=== PATIENT | female | born 1965 | race Caucasian/White ===

== ENCOUNTER 2016-12-09 13:00 | Outpatient (CLI) | payer MEDICAID | END 2016-12-09 13:01 | disposition home or self-care (01) | DX: G47.33 Obstructive sleep apnea (adult) (pediatric) (principal) ==

== ENCOUNTER 2017-06-03 14:23 | Outpatient (CLI) | payer MEDICAID | END 2017-06-03 14:24 | disposition home or self-care (01) | LOC: SC 14:23 | PROVIDERS: ATTEND Nurse Practitioner Family | DX: G47.33 Obstructive sleep apnea (adult) (pediatric) (principal) | CPT/HCPCS: 99212; 99214 ==

== ENCOUNTER 2018-06-30 08:00 | Outpatient (CLI) | payer MEDICAID | END 2018-06-30 23:59 | LOC: LAB.R 08:00 | PROVIDERS: ATTEND Nurse Practitioner | DX: I10 Essential (primary) hypertension (principal); Z12.11 Encounter for screening for malignant neoplasm of colon; E55.9 Vitamin D deficiency, unspecified; R53.83 Other fatigue; Z87.890 Personal history of sex reassignment; F64.8 Other gender identity disorders | CPT/HCPCS: 82274 ==

== ENCOUNTER → 2018-06-30 | Outpatient (CLI) | payer MEDICAID ==
[2018-06-30 18:48] LABS: BASOPHILS # (AUTO) 0.1 10^3/uL (0.0-0.1); BASOPHILS % (AUTO) 0.8 %; EOSINOPHILS # (AUTO) 0.3 10^3/uL (0.0-0.7); EOSINOPHILS % (AUTO) 4.1 %; HGB - HEMOGLOBIN 14.5 g/dL (12.0-16.0); LYMPHOCYTES # (AUTO) 2.2 10^3/uL (1.5-3.5); LYMPHOCYTES % (AUTO) 32.6 %; MEAN CORPUSCULAR HEMOGLOBIN 32.5 pg (27.0-31.0); MEAN CORPUSCULAR HGB CONC 34.1 g/dL (32.0-36.0); MEAN CORPUSCULAR VOLUME 95.2 fL (81.0-99.0); MEAN PLATELET VOLUME 8.7 fL (7.9-10.8); MONOCYTES # (AUTO) 0.5 10^3/uL (0.0-1.0); MONOCYTES % (AUTO) 7.9 %; NEUTROPHILS # (AUTO) 3.7 10^3/uL (1.5-6.6); NEUTROPHILS % (AUTO) 54.6 %; PLT - PLATELET COUNT 222 10^3/uL (130-450); RED BLOOD COUNT 4.45 10^6/uL (4.20-5.40); WHITE BLOOD COUNT 6.7 x10^3/uL (4.8-10.8)
[2018-06-30 19:09] LABS: ALBUMIN 3.6 g/dL (3.2-5.5); ALKALINE PHOSPHATASE 64 IU/L (42-121); ALT ALANINE AMINOTRANSFERASE 27 IU/L (10-60); AST ASPARTATE AMINOTRANSFERASE 27 IU/L (10-42); BUN - BLOOD UREA NITROGEN 15 mg/dL (6-20); CALCIUM 8.3 mg/dL (8.5-10.3); CARBON DIOXIDE - CO2 27 mmol/L (21-32); CHLORIDE 102 mmol/L (101-111); CHOL/HDL RATIO 5.6 (<4.4); CHOLESTEROL 208 mg/dL; CREATININE 0.8 mg/dL (0.4-1.0); GFR - MDRD 76 (>89); GLUCOSE 104 mg/dL (70-100); HDL CHOLESTEROL 37 mg/dL; LDL CHOLESTEROL,CALCULATED 150 mg/dL; LDL/HDL RATIO 4.1 (<4.4); SODIUM 138 mmol/L (135-145); TOTAL PROTEIN 7.2 g/dL (6.7-8.2); VLDL CHOLESTEROL 21 mg/dL
[2018-06-30 19:15] LABS: THYROID STIMULATING HORMONE 3.46 uIU/mL (0.34-5.60)
[2018-06-30 19:26] LABS: FOLATE 9.32 ng/mL (5.90 - >24.8)
== END ==
LOC: LAB.N 11:12
PROVIDERS: ATTEND Nurse Practitioner
DX: I10 Essential (primary) hypertension (principal); Z12.11 Encounter for screening for malignant neoplasm of colon; E55.9 Vitamin D deficiency, unspecified; R53.83 Other fatigue; Z87.890 Personal history of sex reassignment; F64.8 Other gender identity disorders
CPT/HCPCS: 36415; 80053; 80061; 82306; 82607; 82670; 82746; 83721; 84443; 85025

== ENCOUNTER 2018-09-14 13:11 | Outpatient (CLI) | payer MEDICAID | END 2018-09-14 13:12 | disposition home or self-care (01) | LOC: SC 13:11 | PROVIDERS: ATTEND Nurse Practitioner Family | DX: G47.33 Obstructive sleep apnea (adult) (pediatric) (principal) | CPT/HCPCS: 99212; 99214 ==

== ENCOUNTER 2018-11-17 14:08 | Outpatient (CLI) | payer MEDICAID ==
--- NOTE | 2018-11-17 16:51 | Mammography Report ---
Reason: MAMMOGRAPHIC SCREENING FOR BREAST CANCER Procedure Date: 11/17/2018 Accession Number: [id number] / [id number] Procedure: MGN - Screening Mammo Dig Bilat CPT Code: FULL RESULT: EXAM: Screening Mammo Dig Bilat DATE: 11/17/2018 2:30 PM CLINICAL HISTORY: Routine screening. No reported personal or family history of breast cancer. TECHNIQUE: (B) - Bilateral Bilateral CC and MLO views were obtained. COMPARISON: Baseline exam. PARENCHYMAL PATTERN: (D) - The breasts demonstrate heterogeneously dense fibroglandular parenchyma bilaterally. FINDINGS: Bilateral breasts: There are no suspicious masses, calcifications, or areas of distortion. IMPRESSION: Negative examination. BI-RADS category1 RECOMMENDATION: (ANNUAL) - Recommend routine annual screening mammography. BI-RADS CATEGORY: (1) - Negative STANDARD QUALIFYING STATEMENTS: 1. This examination was reviewed with the aid of Computer-Aided Detection (CAD). 2. A negative or benign imaging report should not preclude biopsy if clinically suspicious findings are present. 3. Dense breasts may obscure an underlying neoplasm. 4. This examination was reviewed without the aid of 3D breast imaging (tomosynthesis).
== END 2018-11-17 14:09 | disposition home or self-care (01) ==
LOC: DI.N 14:08
PROVIDERS: ATTEND Nurse Practitioner
DX: Z12.31 Encounter for screening mammogram for malignant neoplasm of breast (principal)
CPT/HCPCS: 77067

== ENCOUNTER 2019-06-08 08:00 | Outpatient (CLI) | payer MEDICAID ==
[2019-06-08 18:57] LABS: BASOPHILS # (AUTO) 0.1 10^3/uL (0.0-0.1); BASOPHILS % (AUTO) 0.8 %; EOSINOPHILS # (AUTO) 0.3 10^3/uL (0.0-0.7); EOSINOPHILS % (AUTO) 3.9 %; HGB - HEMOGLOBIN 14.5 g/dL (12.0-16.0); LYMPHOCYTES # (AUTO) 2.7 10^3/uL (1.5-3.5); MEAN CORPUSCULAR HEMOGLOBIN 31.5 pg (27.0-31.0); MEAN CORPUSCULAR VOLUME 95.2 fL (81.0-99.0); MEAN PLATELET VOLUME 10.4 fL (7.9-10.8); MONOCYTES # (AUTO) 0.6 10^3/uL (0.0-1.0); MONOCYTES % (AUTO) 7.7 %; NEUTROPHILS # (AUTO) 4.2 10^3/uL (1.5-6.6); NEUTROPHILS % (AUTO) 53.1 %; PLT - PLATELET COUNT 222 10^3/uL (130-450); RED BLOOD COUNT 4.61 10^6/uL (4.20-5.40); WHITE BLOOD COUNT 7.9 x10^3/uL (4.8-10.8)
[2019-06-08 19:39] LABS: HB2 TOTAL 15.1 g/dL; HEMOGLOBIN A1C 0.54 g/dL; HEMOGLOBIN A1C % 5.4 % (4.6-6.2)
[2019-06-08 20:41] LABS: ALBUMIN 3.6 g/dL (3.2-5.5); BILIRUBIN,TOTAL 0.9 mg/dL (0.2-1.0); CALCIUM 8.9 mg/dL (8.5-10.3); CREATININE 0.9 mg/dL (0.4-1.0); TOTAL PROTEIN 7.1 g/dL (6.7-8.2)
== END 2019-06-08 23:59 | disposition home or self-care (01) ==
LOC: LAB.WCP 08:00
PROVIDERS: ATTEND Physician Assistant
DX: E66.01 Morbid (severe) obesity due to excess calories (principal)
CPT/HCPCS: 36415; 80053; 83036; 85025

== ENCOUNTER 2019-06-15 11:15 | Outpatient (CLI) | payer MEDICAID | END 2019-06-15 11:16 | disposition home or self-care (01) | LOC: DI 11:15 | PROVIDERS: ATTEND Physician Assistant | DX: I87.2 Venous insufficiency (chronic) (peripheral) (principal); R06.00 Dyspnea, unspecified | CPT/HCPCS: 93306 ==

== ENCOUNTER 2019-06-23 08:00 | Outpatient (CLI) | payer MEDICAID | END 2019-06-23 23:59 | disposition home or self-care (01) | LOC: LAB.WCP 08:00 | PROVIDERS: ATTEND Physician Assistant | DX: Z79.899 Other long term (current) drug therapy (principal) | CPT/HCPCS: 36415; 82670; 84403 ==

== ENCOUNTER 2019-07-12 07:00 | Outpatient (CLI) | payer MEDICAID ==
[2019-07-12 15:59] LABS: CALCIUM 8.7 mg/dL (8.5-10.3)
== END 2019-07-12 23:59 | disposition home or self-care (01) ==
LOC: LAB.WCP 07:00
PROVIDERS: ATTEND Physician Assistant
DX: Z79.890 Hormone replacement therapy (principal)
CPT/HCPCS: 36415; 80048

== ENCOUNTER 2019-09-06 12:38 | Outpatient (CLI) | payer MEDICAID ==
--- NOTE | 2019-09-07 09:32 | Ultrasound Report ---
Reason: BILAT LEG EDEMA, ESTROGEN REPLACEMENT THERAPY Procedure Date: 09/06/2019 Accession Number: [id number] / [id number] Procedure: US - Duplex Ext Veins Bilateral CPT Code: Final Report FULL RESULT: EXAM: BILATERAL LOWER EXTREMITY VENOUS ULTRASOUND EXAM DATE: 09/06/2019 01:39 PM. CLINICAL HISTORY: Bilateral leg edema, estrogen replacement therapy. COMPARISON: 09/06/2019 1:37 PM. TECHNIQUE: Real-time sonographic vascular imaging was performed by the surgery attendant through the lower extremities utilizing both color-flow and Doppler spectral analysis. Multiple employee representative static images were saved for review. FINDINGS: Right: Common Femoral Vein (CFV): Normal. CFV-GSV Junction: Normal. Profunda Femoral Vein (PFV): Normal. Femoral Vein (FV) Prox: Normal. Femoral Vein (FV) Mid: Normal. Femoral Vein (FV) Dist: Normal. Popliteal Vein: Normal. Posterior Tibial Veins: Not seen. Peroneal Veins: Not seen. Left: Common Femoral Vein (CFV): Normal. CFV-GSV Junction: Normal. Profunda Femoral Vein (PFV): Normal. Femoral Vein (FV) Prox: Normal. Femoral Vein (FV) Mid: Normal. Femoral Vein (FV) Dist: Normal. Popliteal Vein: Normal. Posterior Tibial Veins: Not seen. Peroneal Veins: Not seen. Other: Bilateral lower extremity edema limits evaluation. In particular, the bilateral posterior tibial and peroneal veins are not seen. IMPRESSION: 1. Suboptimal visualization of bilateral posterior tibial peroneal veins. 2. Given the limitations, no evidence for deep venous thrombosis. RADIA
== END 2019-09-06 12:39 | disposition home or self-care (01) ==
LOC: DI 12:38
PROVIDERS: ATTEND Physician Assistant
DX: R60.0 Localized edema (principal); Z79.890 Hormone replacement therapy
CPT/HCPCS: 93970

== ENCOUNTER 2019-09-10 08:00 | Outpatient (CLI) | payer MEDICAID ==
[2019-09-10 19:20] LABS: CALCIUM 8.7 mg/dL (8.5-10.3); CREATININE 0.8 mg/dL (0.4-1.0)
== END 2019-09-10 08:01 | disposition home or self-care (01) ==
LOC: LAB.WCP 08:00
PROVIDERS: ATTEND Physician Assistant
DX: R60.9 Edema, unspecified (principal)
CPT/HCPCS: 36415; 80048

== ENCOUNTER 2019-09-20 13:40 | Outpatient (CLI) | payer MEDICAID ==
[2019-09-20 15:01] VITALS: BP 130/80
--- NOTE | 2019-09-20 15:01 | SLEEP CARE CONSULTATION ---
Information from patient questionnaire entered by Amanda Melvin. I have reviewed and concur with the information entered by Amanda Melvin. This document represents the service I personally performed and the decisions made by me, Charity Salinas, RN, MSN, RECORDAK OPERATOR. History of Present Illness Previous diagnosis: Severe, Obstructive Sleep Apnea-Hypopnea Syndrome AHI: 42.9 Reason for follow up: annual Equipment type: CPAP Equipment obtained from: [employer] Mask style: Full face (mirage quatro) Mask brand: Resmed Last cushion change: 3 months ago Prior sleep studies: Yes CPAP Compliance Data - Data Reviewed with Patient Average duration of nightly device use: 6h 54m Compliance rate %: 99.4 Current pressure setting (cmH2O): 15 Humidity settin Heated hose setting: off Average residual AHI: 0.4 Average large leak: 6m 26s Subjective Patient concerns: reports: other (feeling overheated- patient reports this comes from mask and then she feels warm all over and sweats ). denies: aerophagia, mask discomfort, air blowing in eyes, mask leak noise, condensation in ma sk/hose, nasal congestion, dry mouth, nose, throat, epistaxis Observed to snore while using device: No Current pressure setting perceived as: comfortable On therapy, patient: reports: sleeping better, awakening more refreshed, being more awake and alert during the day, more rested overall. denies: drowsiness while driving (does not drive) Initial [place] Sleepiness Scale score: 15 Current [place] Sleepiness Scale score: 7 Allergies and Home Medications Known drug allergies: Yes Home medication list reviewed: Yes (see changes ) Allergy and home medication list: Medication Name (generic/name brand) Strength & Dosage Albuterol Sulfate 2.5mg/3ml Use 1 vial via nebulizer q4hr as needed Finasteride 5mg tab one daily Estradiol 2mg tab three daily Spironolactone 100mg tab two twice daily Aspirin 325mg tab one daily Centrum Adults Tab one daily lasix 20mg daily Allergy List Penicillin Potassium Review of Systems Review of systems same as previous: No (Dyspnea , lower leg edema with reduction with Lasix ) Physical Exam Blood Pressure: 130/80 Cuff size: long Heart Rate: 75 O2 Saturation: 98 Height: 5 ft 8 in Weight: 358 lb 12.8 oz (on lasix for past week ) Weight change since last visit: gained 7 pounds Body Mass Index: 54.5 BMI Classification: Obesity Class 3 Impression and Plan 1. Obstructive Sleep Apnea-Hypopnea Syndrome, severe, with good treatment compliance and good apnea control. On CPAP therapy, the patient has better sleep quality and is more rested overall. For her feeling of increased warmth with CPAP use that could be from humidity use, I discussed reducing setting for comfort. She can turn it down to zero with pass over of water in reservoir if no oral dryness with rationale discussed. Patient has gained more weight. Currently patients BMI is obesity class . Obesity increases the risk of apnea, CPAP pressure requirements and overall health risks especially cardiovascular and diabetes. Thus patient is advised to lose weight. Weight loss can be done with reducing portion size, refined foods and balancing content with vegetables, fruit and protein. A diet consultation can be helpful in achieving optimal weight loss goals. The BMI chart was reviewed. The patient would like to reduce to 20 pounds bringing their BMI down to 50. Patient encouraged to discuss their weight loss goals with their PCP and consider a referral to a diploma medical assistant. Symptoms to report for CPAP pressure adjustment discussed. Patient's apnea severity and rationale for treatment to reduce apnea, improve sleep quality and reduce cardiovascular and cerebrovascular events was reviewed. * Continue CPAP pressure at 15 cmH2O * Reduce humidity * Notify me if snoring with mask or feeling that the pressure is too much or too little * Attempt to lose weight * Call this office if any problems using CPAP * Return for follow up in 1 year, or sooner if concerns arise Time Spent with Patient (minutes): 18 I spent 100% of this visit face to face with the patient with greater than 50% of this was spent time counseling the patient and coordination of care.
== END 2019-09-20 13:41 | disposition home or self-care (01) ==
LOC: SC 13:40
PROVIDERS: ATTEND Nurse Practitioner Family
DX: G47.33 Obstructive sleep apnea (adult) (pediatric) (principal); E66.9 Obesity, unspecified; Z68.43 Body mass index [BMI] 50.0-59.9, adult
CPT/HCPCS: 99212; 99213

== ENCOUNTER 2020-07-17 08:00 | Outpatient (CLI) | payer MEDICAID ==
[2020-07-17 18:10] LABS: BASOPHILS # (AUTO) 0.1 10^3/uL (0.0-0.1); BASOPHILS % (AUTO) 0.6 %; EOSINOPHILS # (AUTO) 0.2 10^3/uL (0.0-0.7); EOSINOPHILS % (AUTO) 2.2 %; LYMPHOCYTES # (AUTO) 2.4 10^3/uL (1.5-3.5); LYMPHOCYTES % (AUTO) 29.4 %; MEAN CORPUSCULAR HEMOGLOBIN 32.1 pg (27.0-31.0); MEAN CORPUSCULAR HGB CONC 33.8 g/dL (32.0-36.0); MEAN PLATELET VOLUME 10.3 fL (7.9-10.8); MONOCYTES # (AUTO) 0.6 10^3/uL (0.0-1.0); MONOCYTES % (AUTO) 7.6 %; NEUTROPHILS # (AUTO) 4.8 10^3/uL (1.5-6.6); NEUTROPHILS % (AUTO) 59.7 %; PLT - PLATELET COUNT 220 10^3/uL (130-450); RED BLOOD COUNT 4.98 10^6/uL (4.20-5.40); RED CELL DISTRIBUTION WIDTH 12.8 % (12.0-15.0)
[2020-07-17 19:14] LABS: ALBUMIN 4.1 g/dL (3.2-5.5); ALKALINE PHOSPHATASE 64 IU/L (42-121); ALT ALANINE AMINOTRANSFERASE 31 IU/L (10-60); AST ASPARTATE AMINOTRANSFERASE 25 IU/L (10-42); BILIRUBIN,TOTAL 0.9 mg/dL (0.2-1.0); BUN - BLOOD UREA NITROGEN 19 mg/dL (6-20); CALCIUM 9.7 mg/dL (8.5-10.3); CARBON DIOXIDE - CO2 27 mmol/L (21-32); CHLORIDE 100 mmol/L (101-111); CHOL/HDL RATIO 4.8 (<4.4); CHOLESTEROL 213 mg/dL; GLUCOSE 93 mg/dL (70-100); HDL CHOLESTEROL 44 mg/dL; LDL CHOLESTEROL,CALCULATED 154 mg/dL; LDL/HDL RATIO 3.5 (<4.4); SODIUM 136 mmol/L (135-145); TOTAL PROTEIN 8.2 g/dL (6.7-8.2); VLDL CHOLESTEROL 15 mg/dL
== END 2020-07-17 23:59 | disposition home or self-care (01) ==
LOC: LAB.WCP 08:00
PROVIDERS: ATTEND Physician Assistant
DX: I10 Essential (primary) hypertension (principal); E66.01 Morbid (severe) obesity due to excess calories; Z79.890 Hormone replacement therapy
CPT/HCPCS: 36415; 80053; 80061; 82670; 83721; 84403; 85025

== ENCOUNTER 2020-07-28 11:30 | Outpatient (CLI) | payer MEDICAID ==
[2020-07-28 18:58] LABS: BILIRUBIN,URINE NEGATIVE (NEGATIVE); GLUCOSE, URINE (UA) NEGATIVE (NEGATIVE); KETONES,URINE (UA) NEGATIVE (NEGATIVE); LEUKOCYTE ESTERASE, URINE NEGATIVE (NEGATIVE); NITRITE,URINE NEGATIVE (NEGATIVE); OCCULT BLOOD,URINE SMALL (NEGATIVE); PH,URINE 5.5 PH (5.0-7.5); PROTEIN,URINE NEGATIVE (NEGATIVE); UROBILINOGEN,URINE 0.2 (NORMAL) E.U./dL (NORMAL)
[2020-07-28 19:33] LABS: BACTERIA,URINE None Seen /HPF (None Seen); CLARITY,URINE CLEAR (CLEAR); RBC,URINE 0-5 /HPF (0-5); SQUAMOUS EPITHELIAL CELL,UR FEW Squamous (<= Few)
== END 2020-07-28 23:59 | disposition home or self-care (01) ==
LOC: LAB.R 11:30
PROVIDERS: ATTEND Nurse Practitioner
DX: R31.29 Other microscopic hematuria (principal)
CPT/HCPCS: 81001; 87086

== ENCOUNTER 2020-09-20 10:22 | Outpatient (CLI) | payer MEDICAID ==
[2020-09-20] MEDS ORDERED: AMINOPHYLLINE 500 MG/20 ML VIAL ONE (10:54)
[2020-09-20] MEDS ORDERED: REGADENOSON 0.4 MG/5 ML SYRINGE IVP ONE ×2 (10:54→15:55)
--- NOTE | 2020-09-20 13:00 | CARDIAC PROCEDURE NOTE ---
DATE OF SERVICE: 09/20/2020 Physician: Leila Rea MD, [facility] INDICATION: Exertional shortness of breath, severe obesity, BMI greater than 40, estrogen replacement therapy, hypertension. DESCRIPTION OF PROCEDURE: After signing informed consent, the patient underwent a Lexiscan pharmaceutical stress test with a 2-day nuclear myocardial perfusion imaging (due to morbid obesity). RESTING HEART RATE: 66. PEAK HEART RATE: 93. RESTING BLOOD PRESSURE: 125/63. PEAK BLOOD PRESSURE: 138/53. Lexiscan was infused per protocol. The patient developed flushing and feeling of "an electric shock passing through her down to her legs." She had no chest pain or shortness of breath. Oxygen saturation was 96-98% on room air throughout the test. RESTING EKG: Normal sinus rhythm, within normal limits. EKG AT PEAK: No new ST segment or T-wave changes developed. SUMMARY: 1. Normal resting EKG. 2. No chest pain developed with pharmaceutical stress. 3. No ischemic EKG developed with pharmaceutical stress. 4. Nuclear images reported separately and showed: Moderate sized, reversible perfusion defect of the distal anterior wall and anterior apex. The apex is dyskinetic. IMPRESSION: Abnormal stress test. RECOMMENDATIONS: 1. Light activity advised and referral for a coronary angiogram. 2. Start daily aspirin and anti-anginal treatment (daily Nitrates or Norvasc). 3. Aggressive risk factor management is advised. 4. Due to significant leg edema, recommend an Echo to evaluate for Cor Pulmonale, if not already done. cc: Lexus Islas PA-C TD: 09/20/2020 12:52 [facility]
[2020-09-20] MEDS ORDERED: [UNRECOGNIZED DRUG - OTHER] IVP ONE (16:10)
[2020-09-21] MEDS ORDERED: [UNRECOGNIZED DRUG - OTHER] IVP ONE (12:31)
--- NOTE | 2020-09-21 13:05 | Nuclear Medicine Report ---
PROCEDURE: Rest and exercise myocardial perfusion SPECT with gated imaging and ejection fraction INDICATIONS: LEXISCAN - SOB, OBESITY, HTN RADIOPHARMACEUTICAL: 28.0 mCi Tc-99m Myoview IV at rest and 29.5 mCi Tc-99m Myoview IV at peak exerc ise. A 7-act-akistgsa was performed. TECHNIQUE: Radiopharmaceutical was injected at peak stress test, and also at rest. SPECT images wer e obtained. SPECT myocardial perfusion images were displayed in short axis, horizontal long axis, an d vertical long axis views. Gated images were reviewed using AutoQUANT software. COMPARISON: None available. FINDINGS: Raw data: There is good myocardial labeling by radiotracer. No significant motion artifacts. Lung- to-heart ratio is 0.42 (normal is less than 0.38 for tetrafosmin tracer). Left ventricle function: Gated images demonstrate normal left ventricle wall thickening. No segment al wall motion abnormality. No transient ischemic dilation; TID is 1.09 (normal less than 1.3). The left ventricle end-diastolic volume is normal. Left ventricle stress ejection fraction is Greater t viramontes 70%; normal values are above 45%. There is mild apical dyskinesis. Myocardial perfusion: There is moderate sized, moderately severe, reversible perfusion defect in the distal anterior wall and anterior apex, consistent with myocardial ischemia. IMPRESSION: 1. Abnormal myocardial perfusion images. There is a moderate sized, moderately severe, reversible per fusion defect in the distal anterior wall and anterior apex, consistent with myocardial ischemia. 2. Mild apical dyskinesia with normal left ventricular volume and observed systolic function. 3. Fdvr-ce-lkfwp activity ratio (LHR) is increased, which is a independent predictor for adverse card iac event. 4. Please correlate with stress EKG report. PQRS ATTESTATIONS: Measure 322 - Is this imaging test primarily performed on a low-risk surgery patient for preoperative evaluation within 30 days preceding their low-risk non-cardiac surgery? Low-risk surgery is defined as cardiac or myocardial infarction less than 1%, including (but not limited to) endoscopic pr ocedures, superficial procedures, cataract surgery, and excisional breast surgery: Answer: No Measure 323 - Is this imaging test performed primarily for the monitoring of an asymptomatic patient who had percutaneous coronary intervention on the visit date or within 2 years of the visit date? An swer: No Measure 324 - Is this imaging test performed primarily for the initial detection and risk assessment on an asymptomatic, low coronary heart disease patient? Low CHD risk definition = clinicians should consider the maximum number of available patient factors used to estimate risk based on [place] (A TP III criteria), typically age, gender, diabetes, smoking status, and use of blood pressure medicati on, and integrate age appropriate estimates for missing elements, such as LDL or standard blood press ure. Answer: No Reviewed by: Brittni Pickett MD on 09/21/2020 1:03 PM PST Approved by: Brittni Pickett MD on 09/21/2020 1:03 PM PST Station ID: [id number]
== END 2020-09-20 10:23 | disposition home or self-care (01) ==
LOC: DI 10:22
PROVIDERS: ATTEND Physician Assistant
DX: I11.9 Hypertensive heart disease without heart failure (principal); I25.9 Chronic ischemic heart disease, unspecified; R06.02 Shortness of breath; E66.01 Morbid (severe) obesity due to excess calories; Z79.890 Hormone replacement therapy
CPT/HCPCS: 78452; 93017; A9500; J2785

== ENCOUNTER 2020-10-12 19:37 | Outpatient (CLI) | payer MEDICAID | END 2020-10-12 19:38 | disposition home or self-care (01) | LOC: COV 19:37 | PROVIDERS: ATTEND Family Medicine | DX: R50.9 Fever, unspecified (principal); R06.02 Shortness of breath; M79.10 Myalgia, unspecified site; R53.83 Other fatigue; R07.0 Pain in throat; R19.7 Diarrhea, unspecified; R11.0 Nausea; Z20.822 Contact with and (suspected) exposure to COVID-19 ==

== ENCOUNTER 2020-11-29 14:18 | Outpatient (CLI) | payer MEDICAID ==
--- NOTE | 2020-11-29 15:00 | SLEEP CARE CONSULTATION ---
Information from patient questionnaire entered by Jayme Ramirez. I have reviewed and concur with the information entered by Jayme Ramirez. This document represents the service I personally performed and the decisions made by me, Angelic Matos ARNP. History of Present Illness Service Date and Time: 11/29/2020 1418 Previous diagnosis: Severe, Obstructive Sleep Apnea-Hypopnea Syndrome AHI: 42.9 Reason for follow up: annual (Last seen 09/2019) Equipment type: CPAP Equipment obtained from: [employer] (getting supplies as needed) Mask style: Full face (mirage quatro, large with large headgear) Backup mask available: Yes (old mask) Last cushion change: 2 months Prior sleep studies: Yes Year and Where[place] [facility] [place] [facility] HPI additional information: JESS ARCHIBALD was diagnosed to have severe, AHI 42.9, obstructive sleep apnea-hypopnea syndrome and returned today for CPAP therapy annual follow-up. CPAP Compliance Data - Data Reviewed with Patient Average duration of nightly device use: 6 h 13 min Compliance rate %: 98.3 Current pressure setting (cmH2O): 15 Humidity settin Average residual AHI: 0.3 Average large leak: 2 min 37 sec Subjective Patient concerns: denies: aerophagia, mask discomfort, air blowing in eyes, mask leak noise, condensation in mask/hose, nasal congestion, dry mouth, nose, throat, epistaxis, other Observed to snore while using device: No Current pressure setting perceived as: comfortable On therapy, patient: reports: sleeping better, awakening more refreshed, being more awake and alert during the day, more rested overall. denies: drowsiness while driving Initial [place] Sleepiness Scale score: 15 (in 2009) Current [place] Sleepiness Scale score: 4 Allergies and Home Medications Home medication list reviewed: Yes (no new medications) Review of Systems Review of systems same as previous: No (had stress test and angiogram (no issues) for edema in legs) Physical Exam Heart Rate: 59 O2 Saturation: 95 Height: 5 ft 8 in Weight: 364 lb Weight change since last visit: 6 lb gain Body Mass Index: 55.3 BMI Classification: Morbidly Obese Impression and Plan 1. Obstructive Sleep Apnea-Hypopnea Syndrome, severe, with excellent treatment compliance and excellent apnea control. On CPAP therapy, the patient has better sleep quality and is more rested overall. Patient has significant improvement of her sleep apnea and is satisfied with her treatment. She needs her supplies updated. She uses a full face Mirage Quatro large size mask with a large size headgear. She states the average headgear wears out in about 3 weeks but the large headgear last much longer. I will add this to her prescription so she may obtain the right setup. She is to follow up in a year, sooner if needed. She voiced understanding and agreement with plan. Patient's apnea severity and rationale for treatment to reduce apnea, improve sleep quality and reduce cardiovascular and cerebrovascular events was reviewed. I also reviewed the benefit of consistent device use of CPAP for gastric reflux. * Continue autoCPAP pressure at 15 cmH2O * Update supplies * Notify me if snoring with mask or feeling that the pressure is too much or too little * Attempt to lose weight * Call this office if any problems using CPAP * Return for follow up in 1 year, or sooner if concerns arise Counseling Topics: Spare mask, Weight loss health impact Visit Type: In Office Time Spent with Patient (minutes): 14 Provider Statement: I spent 100% of the Face to Face Visit with the patient with greater than 50% spent counseling the patient and coordination of care.
== END 2020-11-29 14:19 | disposition home or self-care (01) ==
LOC: SC 14:18
PROVIDERS: ATTEND Nurse Practitioner Family
DX: G47.33 Obstructive sleep apnea (adult) (pediatric) (principal); E66.01 Morbid (severe) obesity due to excess calories; Z68.43 Body mass index [BMI] 50.0-59.9, adult
CPT/HCPCS: 99212

== ENCOUNTER 2021-03-27 08:02 | Outpatient (CLI) | payer MEDICAID | END 2021-03-27 08:03 | disposition critical access hospital (66) | LOC: EMS 08:02 | DX: K62.5 Hemorrhage of anus and rectum (principal) | CPT/HCPCS: A0425; A0427 ==

== ENCOUNTER 2021-03-27 08:23 | Emergency (ER) | payer MEDICAID ==
[2021-03-27 08:36] VITALS: BP 156/84
--- NOTE | 2021-03-27 08:54 | ED Physician Documentation ---
PD HPI GI BLEED - Stated complaint Stated Complaint: GIB - Chief complaint Chief Complaint: General - History obtained from History obtained from: Patient - History of Present Illness Timing - onset: Last night Timing - duration: Hours (6-8) Timing - details: Abrupt onset, Still present Associated symptoms: BRBPR (she and her partner were using dildo shaped toy last night, which they have used before. Pt states it has moderate girth but not very long in shape. She noted feeling of pain onset during the play. And some red bl ood per rectum. Continues with more bleeding this morning (panties and also toilet)) Contributing factors: No: Sick contact, Bad food Similar symptoms before: Has not had sx before Recently seen: Not recently seen Review of Systems Constitutional: denies: Fever, Chills Nose: denies: Rhinorrhea / runny nose, Congestion Throat: denies: Sore throat Respiratory: denies: Cough GI: denies: Abdominal Pain, Nausea, Vomiting, Constipation (has had normal stool consistency with daily stool softener usually.), Diarrhea Skin: denies: Rash, Lesions PD PAST MEDICAL HISTORY - Past Medical History Past Medical History: Yes Cardiovascular: Hypertension, High cholesterol, Other Respiratory: Sleep apnea, CPAP use Neuro: None Endocrine/Autoimmune: None GI: GERD INTERIOR DESIGN COORDINATOR: None : None HEENT: None Psych: Anxiety Musculoskeletal: None, Chronic back pain Derm: None - Past Surgical History Past Surgical History: No - Present Medications Home Medications: Ambulatory Orders Medication Instructions Recorded Confirmed Aspirin [Aspir 81] 250 mg PO DAILY 04/29/13 08/28/15 Finasteride 5 mg PO DAILY 04/29/13 08/28/15 Spironolactone [Aldactone] 300 mg PO DAILY 04/29/13 08/28/15 Naproxen [Naprosyn] 500 mg PO DAILY 08/28/15 08/28/15 estradioL [Estradiol] 6 mg PO DAILY 08/28/15 08/28/15 - Allergies Allergies/Adverse Reactions: Allergies Allergy/AdvReac Type Severity Reaction Status Date / Time Penicillins Allergy Severe Respiratory Verified 03/27/21 08:36 - Social History Does the pt smoke?: No Smoking Status: Never smoker Does the pt drink ETOH?: No Does the pt have substance abuse?: No - Immunizations Immunizations are current?: Yes - POLST Patient has POLST: No PD ED PE NORMAL - Vitals Vital signs reviewed: Yes - General General: Alert and oriented X 3, No acute distress, Well developed/nourished - Abdomen Abdomen: Soft, Non tender - Female Female : Deferred, Air Intercept Controller Supervisor present (her partner) - Rectal Rectal: Other (there is bright red blood at rectal verge, with small mocusal tear at 12 oclock position, mild oozing of bleed. Digital exam feeling small cl eft at same position just internally c/w small tear/fissure. No hemorrhoids. ) Results - Vitals Vitals: Oxygen O2 Source Room air - Labs Labs: Laboratory Tests 03/27/21 09:43 WBC 6.7 RBC 4.63 Hgb 14.9 Hct 43.0 MCV 92.9 MCH 32.2 H MCHC 34.7 RDW 12.4 Plt Count 202 MPV 9.5 Neut # (Auto) 3.8 Lymph # (Auto) 2.1 Edmunds # (Auto) 0.6 Eos # (Auto) 0.2 Baso # (Auto) 0.1 Absolute Nucleated RBC 0.00 Nucleated RBC % 0.0 PD MEDICAL DECISION MAKING - ED course Complexity details: re-evaluated patient (CBC is good, vitals good, does not seem significant volume of loss. Topical treatment with TXA on guaze here and then to use ointment to area BID while healing. Recheck if not stopped in the next day or so. ), considered differential, d/w patient Departure - Departure Disposition: 01 Home, Self Care Clinical Impression: Rectal bleeding Serosal tear of rectum Qualifiers: Encounter type: initial encounter Qualified Code(s): S36.63XA - Laceration of rectum, initial encounter Condition: Stable Record reviewed to determine appropriate education?: Yes Instructions: ED Fissure Anal Ch Comments: Use some gauze or cotton balls in the immediate rectal area for absorbency and direct pressure. This will try to hold a clot in the area more directly as well. Your blood count is good. It does appear to be a small tear at the perirectal mucosal tissue. I would anticipate this stopping in the next day or so. Use a daily stool softener for the next several days to week to have soft stool out to minimize stretch and pressure. Recheck if not improved well into tomorrow and return sooner if significantly worse. Discharge Date/Time: 03/27/21 11:30
[2021-03-27] MEDS ORDERED: TRANEXAMIC ACID 1,000 MG/10 ML VIAL NAS STA (09:27)
[2021-03-27 09:48] LABS: BASOPHILS # (AUTO) 0.1 10^3/uL (0.0-0.1); BASOPHILS % (AUTO) 0.7 %; EOSINOPHILS # (AUTO) 0.2 10^3/uL (0.0-0.7); EOSINOPHILS % (AUTO) 2.2 %; HGB - HEMOGLOBIN 14.9 g/dL (12.0-16.0); LYMPHOCYTES # (AUTO) 2.1 10^3/uL (1.5-3.5); LYMPHOCYTES % (AUTO) 30.9 %; MEAN CORPUSCULAR HEMOGLOBIN 32.2 pg (27.0-31.0); MEAN CORPUSCULAR HGB CONC 34.7 g/dL (32.0-36.0); MEAN CORPUSCULAR VOLUME 92.9 fL (81.0-99.0); MEAN PLATELET VOLUME 9.5 fL (7.9-10.8); MONOCYTES # (AUTO) 0.6 10^3/uL (0.0-1.0); MONOCYTES % (AUTO) 8.5 %; NEUTROPHILS # (AUTO) 3.8 10^3/uL (1.5-6.6); NEUTROPHILS % (AUTO) 57.3 %; PLT - PLATELET COUNT 202 10^3/uL (130-450); RED BLOOD COUNT 4.63 10^6/uL (4.20-5.40); RED CELL DISTRIBUTION WIDTH 12.4 % (12.0-15.0); WHITE BLOOD COUNT 6.7 x10^3/uL (4.8-10.8)
== END 2021-03-27 11:30 | disposition home or self-care (01) ==
LOC: EDUNIT# → ED 08:23
DX: S36.63XA Laceration of rectum, initial encounter (principal); X58.XXXA Exposure to other specified factors, initial encounter; I10 Essential (primary) hypertension
CPT/HCPCS: 36415; 85025; 99282; 99283

== ENCOUNTER 2022-01-10 11:15 | Outpatient (CLI) | payer MEDICAID ==
[2022-01-10 17:57] LABS: BASOPHILS # (AUTO) 0.1 10^3/uL (0.0-0.1); BASOPHILS % (AUTO) 0.9 %; EOSINOPHILS # (AUTO) 0.3 10^3/uL (0.0-0.7); EOSINOPHILS % (AUTO) 3.8 %; HCT - HEMATOCRIT 43.3 % (37.0-47.0); HGB - HEMOGLOBIN 14.7 g/dL (12.0-16.0); LYMPHOCYTES # (AUTO) 2.7 10^3/uL (1.5-3.5); LYMPHOCYTES % (AUTO) 34.3 %; MEAN CORPUSCULAR HEMOGLOBIN 31.7 pg (27.0-31.0); MEAN CORPUSCULAR HGB CONC 33.9 g/dL (32.0-36.0); MEAN CORPUSCULAR VOLUME 93.5 fL (81.0-99.0); MONOCYTES # (AUTO) 0.6 10^3/uL (0.0-1.0); MONOCYTES % (AUTO) 7.4 %; NEUTROPHILS # (AUTO) 4.1 10^3/uL (1.5-6.6); NEUTROPHILS % (AUTO) 53.2 %; PLT - PLATELET COUNT 220 10^3/uL (130-450); RED BLOOD COUNT 4.63 10^6/uL (4.20-5.40); RED CELL DISTRIBUTION WIDTH 13.1 % (12.0-15.0); WHITE BLOOD COUNT 7.7 x10^3/uL (4.8-10.8)
[2022-01-10 18:15] LABS: ALBUMIN 3.7 g/dL (3.2-5.5); ALBUMIN/GLOBULIN RATIO 0.9 (1.0-2.2); ALKALINE PHOSPHATASE 61 IU/L (42-121); ALT ALANINE AMINOTRANSFERASE 23 IU/L (10-60); AST ASPARTATE AMINOTRANSFERASE 20 IU/L (10-42); BILIRUBIN,TOTAL 0.7 mg/dL (0.2-1.0); BUN - BLOOD UREA NITROGEN 16 mg/dL (6-20); CALCIUM 9.2 mg/dL (8.5-10.3); CARBON DIOXIDE - CO2 27 mmol/L (21-32); CHLORIDE 100 mmol/L (101-111); CHOL/HDL RATIO 4.8 (<4.4); CHOLESTEROL 171 mg/dL; GFR - MDRD 58 (>89); GLUCOSE 105 mg/dL (70-100); HDL CHOLESTEROL 36 mg/dL; LDL CHOLESTEROL,CALCULATED 119 mg/dL; LDL/HDL RATIO 3.3 (<4.4); POTASSIUM 4.2 mmol/L (3.5-5.0); SODIUM 135 mmol/L (135-145); TOTAL PROTEIN 7.9 g/dL (6.7-8.2); TRIGLYCERIDES 81 mg/dL; VLDL CHOLESTEROL 16 mg/dL
[2022-01-10 18:22] LABS: FECAL OCCULT BLOOD (FIT) NEGATIVE (NEGATIVE)
[2022-01-10 18:29] LABS: THYROID STIMULATING HORMONE 3.17 uIU/mL (0.34-5.60)
[2022-01-10 20:11] LABS: ESTIMATED AVERAGE GLUCOSE 108 mg/dL (70-100); HEMOGLOBIN A1c% 5.4 % (4.27-6.07)
== END 2022-01-10 11:16 | disposition home or self-care (01) ==
LOC: LAB.N 11:15
PROVIDERS: ATTEND Internal Medicine
DX: I10 Essential (primary) hypertension (principal); Z12.11 Encounter for screening for malignant neoplasm of colon; E55.9 Vitamin D deficiency, unspecified; R73.01 Impaired fasting glucose; I89.0 Lymphedema, not elsewhere classified
CPT/HCPCS: 36415; 80053; 80061; 82274; 82306; 83036; 83721; 84443; 85025

== ENCOUNTER 2022-01-30 12:55 | Outpatient (CLI) | payer MEDICAID ==
[2022-01-30 13:22] VITALS: BP 122/70
--- NOTE | 2022-01-30 13:22 | SLEEP CARE CONSULTATION ---
Information from patient questionnaire entered by Giovana Kohler MA. I have reviewed and concur with the information entered by Giovana Kohler MA. This document represents the service I personally performed and the decisions made by , Angelic Matos ARNP. History of Present Illness Service Date and Time: 01/30/2022 1255 Previous diagnosis: Severe, Obstructive Sleep Apnea-Hypopnea Syndrome AHI: 42.9 Reason for follow up: annual (LAST SEEN 11-29-2021, BURNS 04/25/2017, RX?, YADI, ) Equipment type: CPAP Equipment obtained from: [employer] (getting supplies as needed) Mask style: Full face (Mirage quatro, large cushion with large headgear) Backup mask available: Yes (old mask) Last cushion change: 2 months ago Prior sleep studies: Yes [place] [facility] [place] additional information: JESS ARCHIBALD was diagnosed to have severe, AHI 42.9, obstructive sleep apnea-hypopnea syndrome and returned today for CPAP therapy annual follow-up. Sleep Study - Results Prior sleep studies: Yes Year and [place] [facility] [place] CP[place] Compliance Data - Data Reviewed with Patient Average duration of nightly device use: 5 HOURS 54 MINUTES Compliance rate %: 100 (08/02/2021-01/28/2022) Current pressure setting (cmH2O): 15 Humidity setting: OFF Heated hose setting: OFF Average residual AHI: 0.2 Average large leak: 2 MIN 14 SECONDS Subjective Patient concerns: reports: other (too warm with heater off; puts in icewater in water chamber). denies: aerophagia, mask discomfort, air blowing in eyes, mask leak noise, condensation in mask/hose, nasal congestion, dry mouth, nose, throat, epistaxis Observed to snore while using device: No Current pressure setting perceived as: comfortable On therapy, patient: reports: sleeping better, awakening more refreshed, being more awake and alert during the day, more rested overall, other. denies: drowsiness while driving (don't drive) Initial [place] Sleepiness Scale score: 15 (in 2009) Current [place] Sleepiness Scale score: 5 Allergies and Home Medications Home medication list reviewed: Yes (no changes) Allergy and home medication list: Allergies Penicillins Allergy (Severe, Verified 03/27/21 08:36) Respiratory Review of Systems Review of systems same as previous: Yes (no changes) Physical Exam Vital signs obtained and entered by: CRISTY Blood Pressure: 122/70 Cuff size: large-left Heart Rate: 87 O2 Saturation: 98 Height: 5 ft 7 in Weight: 375 lb Weight change since last visit: 11 lb gain but is currently uses Body Mass Index: 58.7 BMI Classification: Morbidly Obese Impression and Plan 1. Obstructive Sleep Apnea-Hypopnea Syndrome, severe, with good treatment compliance and excellent apnea control. On CPAP therapy, the patient has better sleep quality and is more rested overall. Patient is very happy with current CPAP therapy. She has significant improvement of her sleep apnea. Patient denies problems with oral dryness, nasal congestion, epistaxis, skin irritation or aerophagia. Patient's apnea severity and rationale for treatment to reduce apnea, improve sleep quality and reduce cardiovascular and cerebrovascular events was reviewed. I also reviewed the benefit of consistent device use of CPAP for gastric reflux. 2. Obesity, unspecified. Patient has gained weight. Currently patients BMI is 58.7. Obesity increases the risk of apnea, CPAP pressure requirements and overall health risks especially cardiovascular and diabetes. Thus patient is advised to lose weight. Weight loss can be done with reducing portion size, reducing refined foods and balancing content with vegetables, fruit and whole grain foods. In addition, patient encouraged to get regular exercise. * Continue CPAP pressure at 15 cmH2O * Notify me if snoring with mask or feeling that the pressure is too much or too little * Attempt to lose weight * Call this office if any problems using CPAP * Return for follow up in 1 year, or sooner if concerns arise Counseling Topics: Spare mask, Weight loss health impact Visit Type: In Office Time Spent with Patient (minutes): 22 Provider Statement: I spent 100% of the Face to Face Visit with the patient with greater than 50% spent counseling the patient and coordination of care.
== END 2022-01-30 12:56 | disposition home or self-care (01) ==
LOC: SC 12:55
PROVIDERS: ATTEND Nurse Practitioner Family
DX: G47.33 Obstructive sleep apnea (adult) (pediatric) (principal); E66.01 Morbid (severe) obesity due to excess calories; Z68.43 Body mass index [BMI] 50.0-59.9, adult
CPT/HCPCS: 99212; 99213

== ENCOUNTER 2022-12-05 10:55 | Outpatient (CLI) | payer MEDICAID ==
--- NOTE | 2022-12-05 20:17 | Ultrasound Report ---
PROCEDURE: Duplex Ext Veins Bilateral INDICATIONS: Lymphedema and swelling. TECHNIQUE: Real-time imaging, as well as color and pulse Doppler interrogation, were performed of the deep veins of both legs from the inguinal ligament to the popliteal fossa. COMPARISON: PROCEDURE: Duplex Ext Veins Bilateral INDICATIONS: LYMPHEDEMA TECHNIQUE: Real time scanning was performed of the lower extremity venous system, with imaging docum entation, as well as Color and pulse Doppler interrogation. COMPARISON: None. FINDINGS: RIGHT LOWER EXTREMITY: The deep veins are normally compressible, and free of intraluminal thrombus. Color and pulse Doppler demonstrate normal intravascular flow. There is normal augmentation with di stal compression maneuver. No reflux. Greater saphenous vein (GSV): Normally 4 mm or less in diameter, with any reflux less than 0.5 secon ds. Saphenofemoral junction (SFJ): 17 mm. No reflux. Proximal GSV: 6 mm. No reflux. Mid GSV: 7 mm. No reflux. Distal GSV: 7 mm. No reflux. Calf GSV: 2 mm, and no reflux. Anterior accessory GSV (AAGSV): Anatomic variant not present across anterior thigh. Not visualized. Small saphenous vein (SSV): No reflux. Posterior calf: mm. No reflux. Vein of Giacomini (posterior thigh connection between GSV and SSV): Anatomic variant not seen. Hand Inspector veins: LEFT LOWER EXTREMITY: The deep veins are normally compressible, and free of intraluminal thrombus. Color and pulse Doppler demonstrate normal intravascular flow. There is normal augmentation with dis antione compression maneuver. No deep reflux. Greater saphenous vein (GSV): Normally 4 mm or less in diameter, with any reflux less than 0.5 secon ds. Saphenofemoral junction (SFJ): 15 mm with reflux Proximal GSV: 6.4 mm. No reflux. Mid GSV: 6.6 mm. No reflux. Distal GSV: 6.1 mm. No reflux. Calf GSV: 3.2 mm. No reflux. Anterior accessory GSV (AAGSV): Anatomic variant not present across anterior thigh. Not visualized Small saphenous vein (SSV): Posterior calf, draining into popliteal vein. No reflux. IMPRESSION: 1. Reflux within the left greater saphenous vein at the saphenofemoral junction. 2. 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 Reviewed by: LANG Paris on 12/05/2022 8:16 PM PDT Approved by: James Ledezma MD on 12/05/2022 8:16 PM PDT Station ID: [id number]
== END 2022-12-05 10:56 | disposition home or self-care (01) ==
LOC: DI 10:55
PROVIDERS: ATTEND Internal Medicine
DX: I89.0 Lymphedema, not elsewhere classified (principal)
CPT/HCPCS: 93970

== ENCOUNTER 2023-01-31 13:28 | Outpatient (CLI) | payer MEDICAID ==
--- NOTE | 2023-01-31 13:16 | SLEEP CARE CONSULTATION ---
Information from patient questionnaire entered by Bethany Madsen. I have reviewed and concur with the information entered by Btehany Madsen. This document represents the service I personally performed and the decisions made by me, Angelic Matos ARNP. History of Present Illness Service Date and Time: 01/31/2023 1300 Previous diagnosis: Severe, Obstructive Sleep Apnea-Hypopnea Syndrome AHI: 42.9 Reason for follow up: annual (LAST SEEN 01/2022) Equipment type: CPAP (Dreamstation 2) Equipment obtained from: [employer] (getting supplies as needed) Mask style: Full face (Mirage Quattro, large cushion with large headgear) Backup mask available: Yes (old mask) Last cushion change: 2 weeks Prior sleep studies: Yes Year and Where: 2007 [facility] [place] [facility] HPI additional information: JESS ARCHIBALD was diagnosed to have severe, AHI 42.9, obstructive sleep apnea-hypopnea syndrome and returns via video Telehealth visit today for CPAP therapy annual follow-up. Sleep Study - Results Prior sleep studies: Yes Year and Where: 2007 [facility] [place] [facility] CPAP Compliance Data Compliance data discussion: We are unable to get download from website. Subjective Patient concerns: denies: aerophagia, mask discomfort, air blowing in eyes, mask leak noise, condensation in mask/hose, nasal congestion, dry mouth, nose, throat, epistaxis Observed to snore while using device: No Current pressure setting perceived as: comfortable On therapy, patient: reports: sleeping better, awakening more refreshed, being more awake and alert during the day, more rested overall. denies: drowsiness while driving Initial [place] Sleepiness Scale score: 15 (in 2009) Current [place] Sleepiness Scale score: 3 Allergies and Home Medications Known drug allergies: Yes (penicillins) Drug allergies reviewed: Yes Home medication list reviewed: Yes (no changes) Allergy and home medication list: Allergies Penicillins Allergy (Severe, Verified 01/30/23 20:14) Respiratory Review of Systems Review of systems same as previous: No (venal reflux in left leg; narrow vein in right; planning on surgery possibl) Physical Exam Vital signs obtained and entered by: Angelic Hernández NP Blood Pressure: 119/58 (pt measured at home) Heart Rate: 80 (per pt) Height: 5 ft 7 in Weight: 358 lb 12.8 oz (per pt) Body Mass Index: 56.2 BMI Classification: Morbidly Obese Impression and Plan 1. Obstructive Sleep Apnea-Hypopnea Syndrome, severe, with unknown treatment compliance and unknown apnea control. On CPAP therapy, the patient has better sleep quality and is more rested overall. We have been unable to access her [place] [employer] to online data download. Patient has always been very compliant and states she cannot sleep without it. She is doing well with significant improvement of her sleep apnea. Patient denies problems with oral dryness, nasal congestion, epistaxis, skin irritation or aerophagia. Patient's apnea severity and rationale for treatment to reduce apnea, improve sleep khalif lity and reduce cardiovascular and cerebrovascular events was reviewed. I also reviewed the benefit of consistent device use of CPAP for gastric reflux. She has some issues with leg edema that is being addressed and she may need surgery to correct. 2. Obesity, unspecified. Currently patients BMI is 56.2. Obesity increases the risk of apnea, CPAP pressure requirements and overall health risks especially cardiovascular and diabetes. Thus patient is advised to lose weight. * Continue CPAP pressure at 15 cmH2O * Obtain therapy data to update note * Update supply prescription * Notify me if snoring with mask or feeling that the pressure is too much or too little * Attempt to lose weight * Call this office if any problems using CPAP * Return for follow up in 1 year, or sooner if concerns arise Counseling Topics: Spare mask, Weight loss health impact Visit Type: Telehealth Video Video Type: Doximity Patient Location: Home Location of Provider: Office Patient agrees and consents to this telehealth visit type: Yes Patient agrees to have their insurance billed: Yes Time Spent with Patient (minutes): 15 Provider Statement: I spent 100% of the Telehealth Video Call with the patient with greater than 50% spent counseling the patient and coordination of care.
[2023-01-31 13:18] VITALS: BP 119/58
== END 2023-01-31 13:29 | disposition home or self-care (01) ==
LOC: SC 13:28
PROVIDERS: ATTEND Nurse Practitioner Family
DX: G47.33 Obstructive sleep apnea (adult) (pediatric) (principal); E66.01 Morbid (severe) obesity due to excess calories; Z68.43 Body mass index [BMI] 50.0-59.9, adult

== ENCOUNTER 2024-02-11 15:22 | Outpatient (CLI) | payer MEDICAID ==
--- NOTE | 2024-02-11 15:20 | SLEEP CARE CONSULTATION ---
Information from patient questionnaire entered by Bethany Madsen. I have reviewed and concur with the information entered by Bethany Madsen. This document represents the service I personally performed and the decisions made by me, Angelic Matos ARNP. History of Present Illness Service Date and Time: 02/11/2024 1520 Previous diagnosis: Severe, Obstructive Sleep Apnea-Hypopnea Syndrome AHI: 42.9 Reason for follow up: annual (LAST SEEN 01/2023) Equipment type: CPAP (Dreamstation 2) Equipment obtained from: [employer] (getting supplies as needed) Mask style: Full face (Mirage Quattro, large cushion with large headgear) Backup mask available: Yes Last cushion change: 2 months Prior sleep studies: Yes Year and Where: 2007 [facility] [place]PI additional information: JESS ARCHIBALD was diagnosed to have severe, AHI 42.9, obstructive sleep apnea-hypopnea syndrome and returns via video appointment today for CPAP therapy annual follow-up. Sleep Study - Results Prior sleep studies: Yes Year and Where: 2007 [facility] [place] [facility] CPAP Compliance Data - Data Reviewed with Patient Average duration of nightly device use: 5 HRS 54 MINS 15 SECS Compliance rate %: 98.9 (02/09/23-02/08/24; 365/365 days used) Current pressure setting (cmH2O): 15 Average residual AHI: 0.3 Central apnea: 0.1 Obstructive apnea: 0 Hypopnea: 0.2 Average large leak: 2 mins 28 secs Subjective Patient concerns: reports: mask discomfort (stretched out headgear needing to be replaced). denies: aerophagia, air blowing in eyes, mask leak noise, condensation in mask/hose, nasal congestion, dry mouth, nose, throat, epistaxis Observed to snore while using device: No Current pressure setting perceived as: comfortable On therapy, patient: reports: sleeping better, awakening more refreshed, being more awake and alert during the day, more rested overall. denies: drowsiness while driving Initial [place] Sleepiness Scale score: 15 (in 2009) Current [place] Sleepiness Scale score: 8 (02/11/24) Allergies and Home Medications Known drug allergies: Yes (as listed) Drug allergies reviewed: Yes Home medication list reviewed: Yes (no changes) Allergy and home medication list: Allergies Penicillins Allergy (Severe, Verified 02/09/24 14:23) Respiratory Review of Systems Review of systems same as previous: Yes (NO CHANGE) Physical Exam Vital signs obtained and entered by: BETHANY Hanks MA Blood Pressure: 124/66 (PER PT) Height: 5 ft 7 in (PER PT) Weight: 363 lb (PER PT) Weight change since last visit: 5 lb gain Body Mass Index: 56.8 BMI Classification: Morbidly Obese Impression and Plan 1. Obstructive Sleep Apnea-Hypopnea Syndrome, severe, with good treatment compliance and good apnea control. On CPAP therapy, the patient has better sleep quality and is more rested overall. Patient has significant improvement of their sleep apnea and is satisfied with current CPAP therapy. Patient denies problems with oral dryness, nasal congestion, epistaxis, skin irritation or aerophagia. Patient's apnea severity and rationale for treatment to reduce apnea, improve sleep quality and reduce cardiovascular and cerebrovascular events was reviewed. I also reviewed the benefit of consistent device use of CPAP for gastric reflux. 2. Obesity, unspecified. Currently patients BMI is 56.8. She is trying to lose weight. Obesity increases the risk of apnea, CPAP pressure requirements and overall health risks especially cardiovascular and diabetes. Thus patient is advised to continue to try to lose weight. * Continue CPAP pressure at 15 cmH2O * Update supply prescription * Notify me if snoring with mask or feeling that the pressure is too much or too little * Attempt to lose weight * Call this office if any problems using CPAP * Return for follow up in 12 months, or sooner if concerns arise Counseling Topics: Spare mask, Weight loss health impact Prescriptions: Device supplies Follow up with Sleep Care in: 1 year Visit Type: Telehealth Video Video Type: Ed Patient Location: Home Location of Provider: Office Patient agrees and consents to this telehealth visit type: Yes Patient agrees to have their insurance billed: Yes Time Spent with Patient (minutes): 15 Provider Statement: I spent 100% of the Telehealth Video Call with the patient with greater than 50% spent counseling the patient and coordination of care.
[2024-02-11 15:23] VITALS: BP 124/66
== END 2024-02-11 15:23 | disposition home or self-care (01) ==
LOC: SC 15:22
PROVIDERS: ATTEND Nurse Practitioner Family
DX: G47.33 Obstructive sleep apnea (adult) (pediatric) (principal); E66.01 Morbid (severe) obesity due to excess calories; Z68.43 Body mass index [BMI] 50.0-59.9, adult